=== PATIENT | female | born 1950 | race African-American/Black ===

== ENCOUNTER 2016-11-22 05:38 | Emergency (ER) | payer MEDICARE, MEDICAID ==
[~2016-11-22] VITALS: Ht 170.2 cm; Wt 59.0 kg
[2016-11-22 06:58] LABS: BASOPHILS % 0.6 % (0.0-2.0); EOSINOPHILS % 0.3 % (0.0-5.0); HEMATOCRIT. 39.5 % (36.0-48.0); HEMOGLOBIN. 12.7 g/dL (12.0-16.0); LYMPHOCYTES % 28.4 % (20.0-50.0); MEAN CORPUSCULAR HEMOGLOBIN 31.9 pg (28.0-32.0); MEAN CORPUSCULAR HGB CONC 32.3 g/dL (31.0-37.0); MEAN CORPUSCULAR VOLUME 98.8 fL (81.0-99.0); MEAN PLATELET VOLUME 7.7 fl (7.4-10.4); MONOCYTES % 13.7 % (2.0-8.0); PLATELET 212 x1000/uL (130-400); RED BLOOD CELL COUNT 3.99 mill/uL (4.2-5.4); RED CELL DISTRIBUTION WIDTH 16.8 % (11.6-14.6); WHITE BLOOD COUNT 3.3 x1000/uL (4.5-11.0)
[2016-11-22] MEDS ORDERED: ONDANSETRON HCL 4MG/2ML VIAL IM ONE (07:00)
[2016-11-22] MEDS ORDERED: MORPHINE SULFATE 10 MG/ML CPJ IM ONE (07:00)
[2016-11-22 07:05] LABS: INR 1.2; PROTHROMBIN TIME 12.1 sec
[2016-11-22 07:06] LABS: HCG SCREEN NEGATIVE
[2016-11-22 07:12] LABS: ALANINE AMINOTRANSFERASE 17 IU/L (13-61); ALBUMIN 3.5 g/dL (3.4-5.0); ANION GAP 11; CARBON DIOXIDE 24 mEq/L (21-32); CHLORIDE 109 mEq/L (98-107); INDEX HEMOLYSI 1 (1-3); INDEX ICTERIC 1 (1-4); INDEX LIPEMIC 1 (1-3); LIPASE 210 IU/L (73-393); UREA NITROGEN BLOOD 15 mg/dL (7-21); eGFR > 60 mL/min (>60)
[2016-11-22 07:38] VITALS: BP 154/74
== END 2016-11-22 08:10 | disposition home or self-care (01) ==
LOC: ER 05:38
DX: M32.9 Systemic lupus erythematosus, unspecified (principal); J44.9 Chronic obstructive pulmonary disease, unspecified; Z88.0 Allergy status to penicillin; Z88.6 Allergy status to analgesic agent; Z88.5 Allergy status to narcotic agent; Z88.8 Allergy status to other drugs, medicaments and biological substances; Z87.891 Personal history of nicotine dependence
CPT/HCPCS: 36415; 80053; 83690; 84703; 85025; 85610; 96372; 99284; J2270

== ENCOUNTER 2016-12-01 05:17 | Emergency (ER) | payer MEDICARE, MEDICAID ==
[~2016-12-01] VITALS: Ht 170.2 cm; Wt 59.0 kg
[2016-12-01] MEDS ORDERED: ONDANSETRON HCL 4MG/2ML VIAL IV STA (06:14)
[2016-12-01] MEDS ORDERED: MORPHINE SULFATE 4 MG/ML CPJ (NOT FOR IM USE) IV STA (06:14)
[2016-12-01] MEDS ORDERED: METHYLPREDNISOLONE SOD SUCC 125 MG/2 ML VIAL IV ONE (06:30)
[2016-12-01 06:51] LABS: CLARITY URINE CLEAR (CLEAR); COLOR URINE YELLOW (YELLOW); GLUCOSE URINE NEGATIVE (NEGATIVE); KETONES URINE NEGATIVE (NEGATIVE); LEUKOCYTE ESTERASE URINE TRACE (NEGATIVE); NITRITE URINE NEGATIVE (NEGATIVE); OCCULT BLOOD URINE NEGATIVE (NEGATIVE); PROTEIN URINE NEGATIVE (NEGATIVE)
[2016-12-01 06:53] LABS: INR 1.1; PROTHROMBIN TIME 11.8 sec
[2016-12-01 07:01] LABS: *AMPHETAMINES SCREEN URINE NEGATIVE (NEGATIVE); *BARBITURATES SCREEN URINE NEGATIVE (NEGATIVE); *BENZODIAZEPINES SCREEN URINE NEGATIVE (NEGATIVE); *COCAINE SCREEN URINE NEGATIVE (NEGATIVE); CANNABINOID URINE SCREEN NEGATIVE (NEGATIVE); ECSTASY MDMA SCREEN URINE NEGATIVE (NEGATIVE); METHADONE URINE SCREEN NEGATIVE (NEGATIVE); OPIATES URINE SCREEN PRESUMTIVE POSITIVE (NEGATIVE); PHENCYCLIDINE URINE SCREEN NEGATIVE (NEGATIVE)
[2016-12-01 07:02] LABS: BASOPHILS % 0.5 % (0.0-2.0); EOSINOPHILS % 0.3 % (0.0-5.0); HEMATOCRIT. 41.8 % (36.0-48.0); HEMOGLOBIN. 13.5 g/dL (12.0-16.0); LYMPHOCYTES % 33.1 % (20.0-50.0); MEAN CORPUSCULAR HEMOGLOBIN 31.9 pg (28.0-32.0); MEAN CORPUSCULAR HGB CONC 32.4 g/dL (31.0-37.0); MEAN CORPUSCULAR VOLUME 98.7 fL (81.0-99.0); MEAN PLATELET VOLUME 7.7 fl (7.4-10.4); MONOCYTES % 10.5 % (2.0-8.0); NEUTROPHILS % 55.6 % (40.0-76.0); PLATELET 252 x1000/uL (130-400); RED BLOOD CELL COUNT 4.23 mill/uL (4.2-5.4); RED CELL DISTRIBUTION WIDTH 16.2 % (11.6-14.6); WHITE BLOOD COUNT 3.1 x1000/uL (4.5-11.0)
[2016-12-01 07:04] LABS: ALANINE AMINOTRANSFERASE 27 IU/L (13-61); ALBUMIN 3.6 g/dL (3.4-5.0); ANION GAP 12; CALCIUM 9.1 mg/dL (8.5-10.1); CARBON DIOXIDE 25 mEq/L (21-32); CHLORIDE 108 mEq/L (98-107); ETHANOL BLOOD < 10 mg/dL; INDEX HEMOLYSI 1 (1-3); INDEX ICTERIC 1 (1-4); INDEX LIPEMIC 1 (1-3); UREA NITROGEN BLOOD 10 mg/dL (7-21); eGFR > 60 mL/min (>60)
[2016-12-01] MEDS ORDERED: MORPHINE SULFATE 4 MG/ML CPJ (NOT FOR IM USE) IV ONE (08:00)
[2016-12-01 08:29] LABS: BACTERIA URINE 1+; SQUAMOUS EPITHELIAL CELL URINE 3+ /lpf (RARE/1+)
[2016-12-01 08:31] LABS: RBC URINE 0-2 /hpf (0-2)
[2016-12-01 09:13] VITALS: BP 169/71
== END 2016-12-01 09:13 | disposition home or self-care (01) ==
LOC: ER 05:17
DX: N39.0 Urinary tract infection, site not specified (principal); M32.9 Systemic lupus erythematosus, unspecified; R03.0 Elevated blood-pressure reading, without diagnosis of hypertension; J44.9 Chronic obstructive pulmonary disease, unspecified; Z88.8 Allergy status to other drugs, medicaments and biological substances; Z88.3 Allergy status to other anti-infective agents; Z88.6 Allergy status to analgesic agent; Z87.891 Personal history of nicotine dependence
CPT/HCPCS: 36415; 71010; 80053; 80305; 81001; 84484; 85025; 85610; 85651; 96374; 96375; 96376; 99285; G0482; J2270; J2405; J2930

== ENCOUNTER 2017-02-20 09:46 | Emergency (ER) | payer MEDICARE, MEDICAID ==
[~2017-02-20] VITALS: Ht 170.2 cm; Wt 70.0 kg
[~2017-02-20 09:46] MED LIST: ALBU2.5V13 NEB; FAMO40TA35 PO; FURO-152 PO; POTA10CA42 PO
[2017-02-20] MEDS ORDERED: ONDANSETRON HCL 4MG/2ML VIAL IV STA (10:25)
[2017-02-20] MEDS ORDERED: MORPHINE SULFATE 4 MG/ML CPJ (NOT FOR IM USE) IV STA (10:25)
[2017-02-20] MEDS ORDERED: METHYLPREDNISOLONE SOD SUCC 125 MG/2 ML VIAL IV ONE (10:30)
[2017-02-20 10:54] LABS: BASOPHILS % 0.5 % (0.0-2.0); EOSINOPHILS % 0.1 % (0.0-5.0); HEMATOCRIT. 37.9 % (36.0-48.0); HEMOGLOBIN. 12.4 g/dL (12.0-16.0); LYMPHOCYTES % 13.8 % (20.0-50.0); MEAN CORPUSCULAR HEMOGLOBIN 32.3 pg (28.0-32.0); MEAN CORPUSCULAR VOLUME 98.5 fL (81.0-99.0); MEAN PLATELET VOLUME 7.4 fl (7.4-10.4); MONOCYTES % 2.9 % (2.0-8.0); NEUTROPHILS % 82.7 % (40.0-76.0); PLATELET 227 x1000/uL (130-400); RED BLOOD CELL COUNT 3.84 mill/uL (4.2-5.4); RED CELL DISTRIBUTION WIDTH 15.5 % (11.6-14.6)
[2017-02-20 11:10] LABS: CARBON DIOXIDE 22 mEq/L (21-32); CHLORIDE 109 mEq/L (98-107); CREATINE KINASE 87 IU/L (26-192)
[2017-02-20] MEDS ORDERED: POTASSIUM CHLORIDE 20MEQ TABLET SR PO NR (11:45)
[2017-02-20] MEDS ORDERED: POTASSIUM CHLORIDE INJ 40 MEQ in DEXT 5% WATER 250 ML IV NR (11:45)
[2017-02-20 12:29] VITALS: BP 167/72
== END 2017-02-20 14:43 | disposition left against medical advice (07) ==
LOC: ER 10:44
DX: J44.9 Chronic obstructive pulmonary disease, unspecified (principal); M32.9 Systemic lupus erythematosus, unspecified; Z87.891 Personal history of nicotine dependence; Z88.0 Allergy status to penicillin; Z88.6 Allergy status to analgesic agent; Z88.1 Allergy status to other antibiotic agents; Z90.49 Acquired absence of other specified parts of digestive tract; Z98.890 Other specified postprocedural states
CPT/HCPCS: 36415; 80053; 82550; 85025; 85651; 96365; 96375; 99284; J2270; J2405; J2930; J3480; J7040; J7060

== ENCOUNTER 2017-03-20 06:54 | Emergency (ER) | payer MEDICARE, MEDICAID ==
[~2017-03-20] VITALS: Ht 170.2 cm; Wt 59.0 kg
[2017-03-20] MEDS ORDERED: HYDROCODONE/ACETAMINOPHEN 5/325MG TABLET PO ONE (07:30)
[2017-03-20 08:01] VITALS: BP 175/89
== END 2017-03-20 09:11 | disposition home or self-care (01) ==
LOC: ER 06:55
DX: G89.29 Other chronic pain (principal); M32.9 Systemic lupus erythematosus, unspecified; J44.9 Chronic obstructive pulmonary disease, unspecified; I10 Essential (primary) hypertension; Z91.19 Patient's noncompliance with other medical treatment and regimen; Z87.891 Personal history of nicotine dependence; Z88.0 Allergy status to penicillin; Z88.6 Allergy status to analgesic agent; Z88.1 Allergy status to other antibiotic agents; Z88.8 Allergy status to other drugs, medicaments and biological substances
CPT/HCPCS: 99283

== ENCOUNTER 2018-10-18 13:12 | Inpatient (IN) | payer MEDICARE, MEDICAID ==
[~2018-10-18] VITALS: Ht 170.2 cm; Wt 60.3 kg
[~2018-10-18 13:12] MED LIST changes: -FAMO40TA35 PO; +FAMO40TA70 PO
[2018-10-18] MEDS ORDERED: ONDANSETRON HCL 4MG/2ML INJ IV STA ×2 (14:24→15:44)
[2018-10-18] MEDS ORDERED: MORPHINE SULFATE 4 MG/ML CPJ (NOT FOR IM USE) IV STA ×2 (14:24→15:44)
[2018-10-18] MEDS ORDERED: SODIUM CHLORIDE 0.9% 1000ML BAG (SEPSIS BOLUS) IV ONE (14:30)
[2018-10-18 15:17] LABS: EOSINOPHILS % 1.1 % (0.0-5.0); HEMATOCRIT. 36.5 % (36.0-48.0); HEMOGLOBIN. 11.8 g/dL (12.0-16.0); LYMPHOCYTES % 31.2 % (20.0-50.0); MEAN CORPUSCULAR HEMOGLOBIN 27.9 pg (28.0-32.0); MEAN CORPUSCULAR VOLUME 86.6 fL (81.0-99.0); MEAN PLATELET VOLUME 7.9 fl (7.4-10.4); MONOCYTES % 9.6 % (2.0-8.0); NEUTROPHILS % 57.1 % (40.0-76.0); PLATELET 239 x1000/uL (130-400); RED BLOOD CELL COUNT 4.22 mill/uL (4.2-5.4); RED CELL DISTRIBUTION WIDTH 19.2 % (11.6-14.6)
[2018-10-18 15:20] LABS: CHLORIDE 109 mEq/L (98-107)
[2018-10-18 15:21] LABS: INR 1.1; PROTHROMBIN TIME 11.3 sec (9.1-11.1)
[2018-10-18 15:24] LABS: ETHANOL BLOOD < 10 mg/dL
[2018-10-18] MEDS ORDERED: METHYLPREDNISOLONE SOD SUCC 125 MG/2 ML VIAL IV STA (15:44)
[2018-10-18] MEDS ORDERED: IPRATROPIUM/ALBUTEROL 0.5-3(2.5)MG/3ML NEB HHN ONE (15:45)
[2018-10-18] MEDS ORDERED: LEVOFLOXACIN 750MG PREMIX 150 ML IV ONE (15:45)
[2018-10-18] MEDS ORDERED: MAGNESIUM/ALUMINUM HYDROXIDE/SIMETHICONE 30ML UDC PO PRN (20:30)
[2018-10-18] MEDS ORDERED: ONDANSETRON HCL 4MG/2ML INJ IV PRN (20:30)
[2018-10-18] MEDS ORDERED: DIPHENHYDRAMINE 50MG/ML VIAL IV PRN (20:30)
[2018-10-18] MEDS ORDERED: ACETAMINOPHEN 325MG TABLET PO PRN (20:30)
[2018-10-18] MEDS ORDERED: CLONIDINE 0.1MG TABLET PO PRN (20:30)
[2018-10-18] MEDS ORDERED: IPRATROPIUM/ALBUTEROL 0.5-3(2.5)MG/3ML NEB INH PRN (20:30)
[2018-10-18] MEDS ORDERED: AMLODIPINE 5MG TABLET PO NR (21:15)
[2018-10-18] MEDS ORDERED: FAMOTIDINE 20MG TABLET PO NR (21:15)
[2018-10-18] MEDS ORDERED: METHYLPREDNISOLONE SOD SUCC 125 MG/2 ML VIAL IV NR (21:15)
[2018-10-18] MEDS: HYDROCODONE/ACETAMINOPHEN 10/325MG TABLET PO PRN (21:38)
[2018-10-18 23:10] VITALS: BP 149/85
[2018-10-19] VITALS: BP 149/85
[2018-10-19] MEDS: AMLODIPINE 5MG TABLET PO SCH ×3 (00:21→20:13)
[2018-10-19] MEDS: SODIUM CHLORIDE 0.9% INJ 3ML FLUSH IVF SCH ×4 (00:23→20:13)
[2018-10-19] MEDS: CARISOPRODOL 350 MG TABLET PO PRN ×2 (00:23→09:09)
[2018-10-19] MEDS ORDERED: OXYC40TA57 PO (00:44)
[2018-10-19] MEDS ORDERED: AMLO10TA4 PO (00:44)
[2018-10-19] MEDS ORDERED: ONDA8TAB6 PO (00:44)
[2018-10-19] MEDS ORDERED: S350 MT (00:44)
[2018-10-19] MEDS: IPRATROPIUM/ALBUTEROL 0.5-3(2.5)MG/3ML NEB HHN SCH ×6 (01:03→20:46)
[2018-10-19 04:00] VITALS: BP 122/59
[2018-10-19] MEDS: HYDROCODONE/ACETAMINOPHEN 10/325MG TABLET PO PRN ×3 (04:14→16:15)
[2018-10-19] MEDS: METHYLPREDNISOLONE SOD SUCC 40 MG/ML VIAL IV SCH ×2 (04:14→10:00)
[2018-10-19 08:00] VITALS: BP 142/61
[2018-10-19] MEDS ORDERED: PNEUMOCOCCAL 23-VAL P-SAC VAC 0.5 ML IM ONE (08:00)
[2018-10-19] MEDS ORDERED: FAMOTIDINE 20MG TABLET PO SCH (09:00)
[2018-10-19] MEDS: CELECOXIB 200MG CAPSULE PO SCH ×2 (09:00→09:09)
[2018-10-19] MEDS: FOLIC ACID 1MG TABLET PO SCH (09:10)
[2018-10-19] MEDS: ENOXAPARIN 40MG/0.4ML SYR SUBCUT SCH (09:13)
[2018-10-19] MEDS: HYDROCORTISONE 1% CREAM 30GM TOP SCH ×2 (09:34→20:13)
[2018-10-19 12:00] VITALS: BP 127/65
[2018-10-19 15:42] LABS: CLARITY URINE CLEAR (CLEAR); COLOR URINE YELLOW (YELLOW); KETONES URINE NEGATIVE (NEGATIVE); LEUKOCYTE ESTERASE URINE NEGATIVE (NEGATIVE); NITRITE URINE NEGATIVE (NEGATIVE); OCCULT BLOOD URINE NEGATIVE (NEGATIVE); PROTEIN URINE NEGATIVE (NEGATIVE); SPECIFIC GRAVITY URINE 1.005 (1.005-1.030); UROBILINOGEN URINE 0.2 E.U./dL (0.2-1.0)
[2018-10-19 16:00] VITALS: BP 136/90
[2018-10-19 16:26] LABS: *AMPHETAMINES SCREEN URINE NEGATIVE (NEGATIVE); *BARBITURATES SCREEN URINE NEGATIVE (NEGATIVE); *BENZODIAZEPINES SCREEN URINE NEGATIVE (NEGATIVE); *COCAINE SCREEN URINE NEGATIVE (NEGATIVE)
[2018-10-19 16:27] LABS: CANNABINOID URINE SCREEN NEGATIVE (NEGATIVE); METHADONE URINE SCREEN NEGATIVE (NEGATIVE); OPIATES URINE SCREEN PRESUMTIVE POSITIVE (NEGATIVE); PHENCYCLIDINE URINE SCREEN NEGATIVE (NEGATIVE)
[2018-10-19] MEDS: GUAIFENESIN 200MG/10ML SUGAR FREE UDC PO PRN (18:06)
[2018-10-19] MEDS: LORAZEPAM 0.5MG TABLET PO PRN (18:06)
[2018-10-19] MEDS: METHYLPREDNISOLONE SOD SUCC 125 MG/2 ML VIAL IV SCH (18:06)
[2018-10-19] MEDS: NITROGLYCERIN OINT 1GM/INCH UDPKT TD SCH (19:03)
[2018-10-19 20:00] VITALS: BP 120/70
[2018-10-19] MEDS: ACETAMINOPHEN WITH CODEINE 300/60MG TABLET PO PRN (20:13)
[2018-10-20] VITALS: BP 146/65
[2018-10-20] MEDS: IPRATROPIUM/ALBUTEROL 0.5-3(2.5)MG/3ML NEB HHN SCH ×6 (00:37→21:00)
[2018-10-20] MEDS: CARISOPRODOL 350 MG TABLET PO PRN ×4 (00:49→20:50)
[2018-10-20] MEDS: METHYLPREDNISOLONE SOD SUCC 125 MG/2 ML VIAL IV SCH ×4 (00:49→18:30)
[2018-10-20] MEDS: ACETAMINOPHEN WITH CODEINE 300/60MG TABLET PO PRN ×4 (02:09→20:50)
[2018-10-20] MEDS: LORAZEPAM 0.5MG TABLET PO PRN (02:21)
[2018-10-20 04:00] VITALS: BP 124/62
[2018-10-20] MEDS: SODIUM CHLORIDE 0.9% INJ 3ML FLUSH IVF SCH ×3 (05:26→21:01)
[2018-10-20 08:00] VITALS: BP 125/74
[2018-10-20] MEDS: ENOXAPARIN 40MG/0.4ML SYR SUBCUT SCH (08:17)
[2018-10-20] MEDS: FAMOTIDINE 20MG TABLET PO SCH (08:17)
[2018-10-20] MEDS: FOLIC ACID 1MG TABLET PO SCH (08:18)
[2018-10-20] MEDS: AMLODIPINE 5MG TABLET PO SCH ×2 (08:18→20:50)
[2018-10-20] MEDS: CELECOXIB 200MG CAPSULE PO SCH ×2 (08:18→21:30)
[2018-10-20] MEDS: NITROGLYCERIN OINT 1GM/INCH UDPKT TD SCH ×2 (08:20→18:30)
[2018-10-20 12:00] VITALS: BP 130/76
[2018-10-20] MEDS: HYDROCORTISONE 1% CREAM 30GM TOP SCH ×2 (13:46→21:01)
[2018-10-20 16:00] VITALS: BP 128/75
[2018-10-20 20:00] VITALS: BP 139/84
[2018-10-20] MEDS: HYDROXYCHLOROQUINE SULFATE 200MG TABLET PO SCH (21:30)
[2018-10-20] MEDS: TRIAMCINOLONE ACETONIDE 0.1% CREAM 15GM TOP SCH ×2 (23:00→23:34)
[2018-10-20] MEDS: METHYLPREDNISOLONE SOD SUCC 40 MG/ML VIAL IV SCH (23:23)
[2018-10-21] VITALS: BP 129/70
[2018-10-21] MEDS: IPRATROPIUM/ALBUTEROL 0.5-3(2.5)MG/3ML NEB HHN SCH ×6 (01:23→21:16)
[2018-10-21] MEDS: CARISOPRODOL 350 MG TABLET PO PRN ×4 (02:31→20:55)
[2018-10-21] MEDS: ACETAMINOPHEN WITH CODEINE 300/60MG TABLET PO PRN ×4 (02:31→20:56)
[2018-10-21 04:00] VITALS: BP 137/81
[2018-10-21] MEDS: SODIUM CHLORIDE 0.9% INJ 3ML FLUSH IVF SCH ×3 (05:55→20:57)
[2018-10-21] MEDS: METHYLPREDNISOLONE SOD SUCC 40 MG/ML VIAL IV SCH ×4 (05:55→23:44)
[2018-10-21 08:00] VITALS: BP 118/61
[2018-10-21] MEDS: CELECOXIB 200MG CAPSULE PO SCH ×2 (08:39→17:35)
[2018-10-21] MEDS: FAMOTIDINE 20MG TABLET PO SCH ×2 (08:39→17:36)
[2018-10-21] MEDS: HYDROXYCHLOROQUINE SULFATE 200MG TABLET PO SCH ×2 (08:39→17:35)
[2018-10-21] MEDS: FOLIC ACID 1MG TABLET PO SCH (08:40)
[2018-10-21] MEDS: NITROGLYCERIN OINT 1GM/INCH UDPKT TD SCH ×2 (08:41→17:37)
[2018-10-21] MEDS: TRIAMCINOLONE ACETONIDE 0.1% CREAM 15GM TOP SCH ×2 (08:42→20:57)
[2018-10-21] MEDS: AMLODIPINE 5MG TABLET PO SCH ×2 (08:55→20:56)
[2018-10-21] MEDS: ENOXAPARIN 40MG/0.4ML SYR SUBCUT SCH (08:56)
[2018-10-21] MEDS ORDERED: FOLIC ACID 1MG TABLET PO SCH (09:00)
[2018-10-21] MEDS: HYDROCORTISONE 1% CREAM 30GM TOP SCH ×2 (09:00→20:57)
[2018-10-21] MEDS: METHOTREXATE SODIUM 2 . 5MG TABLET PO SCH ×2 (10:05→14:16)
[2018-10-21] MEDS ORDERED: THROAT LOZENGES-BENZOCAINE/MENTH/CETYLPYRD CL LOZENGES MM PRN (10:30)
[2018-10-21 12:00] VITALS: BP 137/67
[2018-10-21] MEDS: BUDESONIDE 0.5MG/2ML NEB HHN SCH ×2 (13:09→21:16)
[2018-10-21] MEDS: PROMETHAZINE/DEXTROMETHORPHAN 6.25-15MG/5ML BOTTLE 120ML PO PRN (14:11)
[2018-10-21 16:00] VITALS: BP_SYST 123; BP_SYST 170; BP_DIAS 75
[2018-10-21] MEDS: LORAZEPAM 0.5MG TABLET PO PRN (17:36)
[2018-10-21 20:00] VITALS: BP 136/66
[2018-10-22] VITALS: BP_SYST 100; BP_SYST 129; BP_DIAS 63; BP_DIAS 75
[2018-10-22] MEDS: IPRATROPIUM/ALBUTEROL 0.5-3(2.5)MG/3ML NEB HHN SCH ×5 (01:34→20:32)
[2018-10-22] MEDS: CARISOPRODOL 350 MG TABLET PO PRN ×3 (02:49→17:59)
[2018-10-22] MEDS: ACETAMINOPHEN WITH CODEINE 300/60MG TABLET PO PRN ×2 (02:49→09:18)
[2018-10-22] MEDS: METHYLPREDNISOLONE SOD SUCC 40 MG/ML VIAL IV SCH ×3 (06:11→18:15)
[2018-10-22] MEDS: SODIUM CHLORIDE 0.9% INJ 3ML FLUSH IVF SCH ×3 (06:11→20:51)
[2018-10-22 08:00] VITALS: BP 141/82
[2018-10-22] MEDS: METHOTREXATE SODIUM 2 . 5MG TABLET PO SCH (09:00)
[2018-10-22] MEDS: HYDROCORTISONE 1% CREAM 30GM TOP SCH ×2 (09:00→20:50)
[2018-10-22] MEDS: TRIAMCINOLONE ACETONIDE 0.1% CREAM 15GM TOP SCH ×2 (09:00→20:49)
[2018-10-22] MEDS: ENOXAPARIN 40MG/0.4ML SYR SUBCUT SCH (09:14)
[2018-10-22] MEDS: HYDROXYCHLOROQUINE SULFATE 200MG TABLET PO SCH ×2 (09:16→17:59)
[2018-10-22] MEDS: CELECOXIB 200MG CAPSULE PO SCH ×2 (09:17→17:59)
[2018-10-22] MEDS: AMLODIPINE 5MG TABLET PO SCH ×2 (09:17→20:48)
[2018-10-22] MEDS: FAMOTIDINE 20MG TABLET PO SCH ×2 (09:18→17:59)
[2018-10-22] MEDS: FOLIC ACID 1MG TABLET PO SCH (09:19)
[2018-10-22] MEDS: NITROGLYCERIN OINT 1GM/INCH UDPKT TD SCH ×2 (09:19→18:00)
[2018-10-22] MEDS: BUDESONIDE 0.5MG/2ML NEB HHN SCH ×2 (09:41→20:32)
[2018-10-22 12:00] VITALS: BP 135/71
[2018-10-22] MEDS: MORPHINE SULFATE 4 MG/ML CPJ (NOT FOR IM USE) IV PRN ×3 (12:55→21:22)
[2018-10-22 16:00] VITALS: BP 130/75
[2018-10-22] MEDS ORDERED: TERBUTALINE SULFATE 1MG/ML VIAL SUBCUT NR (16:45)
[2018-10-22 17:06] LABS: ANTI-DNA DOUBLE STRANDED QUANT < 1 IU/mL (0-9)
[2018-10-22 20:00] VITALS: BP 159/70
[2018-10-22] MEDS: SERTRALINE HCL 50MG TABLET PO SCH (20:48)
[2018-10-22] MEDS: GUAIFENESIN 200MG/10ML SUGAR FREE UDC PO PRN (21:35)
[2018-10-22] MEDS: PROMETHAZINE/DEXTROMETHORPHAN 6.25-15MG/5ML BOTTLE 120ML PO PRN (22:15)
[2018-10-23] VITALS: BP 126/62
[2018-10-23] MEDS: METHYLPREDNISOLONE SOD SUCC 40 MG/ML VIAL IV SCH ×5 (00:18→23:32)
[2018-10-23] MEDS: IPRATROPIUM/ALBUTEROL 0.5-3(2.5)MG/3ML NEB HHN SCH ×6 (01:13→20:56)
[2018-10-23] MEDS: MORPHINE SULFATE 4 MG/ML CPJ (NOT FOR IM USE) IV PRN ×5 (01:25→21:17)
[2018-10-23 04:00] VITALS: BP 156/74
[2018-10-23] MEDS: SODIUM CHLORIDE 0.9% INJ 3ML FLUSH IVF SCH ×3 (05:26→22:00)
[2018-10-23] MEDS: CARISOPRODOL 350 MG TABLET PO PRN ×2 (06:24→13:05)
[2018-10-23 08:00] VITALS: BP 153/72
[2018-10-23] MEDS: FOLIC ACID 1MG TABLET PO SCH (09:00)
[2018-10-23] MEDS: SERTRALINE HCL 50MG TABLET PO SCH (09:00)
[2018-10-23] MEDS: FAMOTIDINE 20MG TABLET PO SCH ×2 (09:00→17:24)
[2018-10-23] MEDS: HYDROXYCHLOROQUINE SULFATE 200MG TABLET PO SCH ×2 (09:00→17:24)
[2018-10-23] MEDS: CELECOXIB 200MG CAPSULE PO SCH ×2 (09:00→17:25)
[2018-10-23] MEDS: AMLODIPINE 5MG TABLET PO SCH ×2 (09:00→21:18)
[2018-10-23] MEDS: METHOTREXATE SODIUM 2 . 5MG TABLET PO SCH (09:00)
[2018-10-23] MEDS: TRIAMCINOLONE ACETONIDE 0.1% CREAM 15GM TOP SCH ×2 (09:01→21:18)
[2018-10-23] MEDS: HYDROCORTISONE 1% CREAM 30GM TOP SCH ×2 (09:01→21:18)
[2018-10-23] MEDS: PROMETHAZINE/DEXTROMETHORPHAN 6.25-15MG/5ML BOTTLE 120ML PO PRN (09:03)
[2018-10-23 09:06] LABS: COMPLEMENT C3 111 mg/dL (82-167)
[2018-10-23] MEDS: ENOXAPARIN 40MG/0.4ML SYR SUBCUT SCH (09:22)
[2018-10-23] MEDS: NITROGLYCERIN OINT 1GM/INCH UDPKT TD SCH ×2 (09:22→17:24)
[2018-10-23] MEDS: BUDESONIDE 0.5MG/2ML NEB HHN SCH ×2 (09:40→20:56)
[2018-10-23 12:00] VITALS: BP 125/73
[2018-10-23 15:06] LABS: RNP ANTIBODY < 0.2 AI (0.0-0.9); SMITH ANTIBODY < 0.2 AI (0.0-0.9)
[2018-10-23 16:00] VITALS: BP 143/71
[2018-10-23 20:00] VITALS: BP 128/78
[2018-10-24] VITALS: BP 120/60
[2018-10-24] MEDS: IPRATROPIUM/ALBUTEROL 0.5-3(2.5)MG/3ML NEB HHN SCH ×4 (00:23→12:17)
[2018-10-24] MEDS: MORPHINE SULFATE 4 MG/ML CPJ (NOT FOR IM USE) IV PRN ×2 (03:23→09:14)
[2018-10-24 04:00] VITALS: BP 137/70
[2018-10-24] MEDS: CARISOPRODOL 350 MG TABLET PO PRN (04:17)
[2018-10-24] MEDS: SODIUM CHLORIDE 0.9% INJ 3ML FLUSH IVF SCH (04:54)
[2018-10-24] MEDS: METHYLPREDNISOLONE SOD SUCC 40 MG/ML VIAL IV SCH ×2 (06:00→12:00)
[2018-10-24 08:00] VITALS: BP 148/64
[2018-10-24] MEDS: HYDROCORTISONE 1% CREAM 30GM TOP SCH (09:11)
[2018-10-24] MEDS: TRIAMCINOLONE ACETONIDE 0.1% CREAM 15GM TOP SCH (09:11)
[2018-10-24] MEDS: FAMOTIDINE 20MG TABLET PO SCH (09:13)
[2018-10-24] MEDS: FOLIC ACID 1MG TABLET PO SCH (09:13)
[2018-10-24] MEDS: AMLODIPINE 5MG TABLET PO SCH (09:13)
[2018-10-24] MEDS: CELECOXIB 200MG CAPSULE PO SCH (09:13)
[2018-10-24] MEDS: HYDROXYCHLOROQUINE SULFATE 200MG TABLET PO SCH (09:13)
[2018-10-24] MEDS: SERTRALINE HCL 50MG TABLET PO SCH (09:13)
[2018-10-24] MEDS: ENOXAPARIN 40MG/0.4ML SYR SUBCUT SCH (09:15)
[2018-10-24] MEDS: BUDESONIDE 0.5MG/2ML NEB HHN SCH (09:28)
[2018-10-24] MEDS: NITROGLYCERIN OINT 1GM/INCH UDPKT TD SCH (09:31)
[2018-10-24 11:22] VITALS: BP 148/64
[2018-10-24 17:06] LABS: ANTI-MYELOPEROXIDASE AB < 9.0 U/mL (0.0-9.0); ANTI-PROTEINASE 3 ABS < 3.5 U/mL (0.0-3.5)
[2018-10-25 13:06] LABS: ANA IFA Negative (.); ATYPICAL P-ANCA <1:20 titer (Neg:<1:20); CYTOPLASMIC C-ANCA <1:20 titer (Neg:<1:20); PERINUCLEAR P-ANCA <1:20 titer (Neg:<1:20)
[2018-10-28] MEDS ORDERED: METHOTREXATE SODIUM 2 . 5MG TABLET PO SCH ×3 (09:00→17:00)
== END 2018-10-24 14:40 | disposition home or self-care (01) | DRG 133 ==
LOC: ER 13:12 → 7WST 16:16 → EDBEDREQ 16:18 → EDBEDREQSVC 16:18 → ENRESERV 21:58 → 7WST 10-20 08:43
PROVIDERS: ADMIT Internal Medicine; ATTEND Internal Medicine
DX: J96.00 Acute respiratory failure, unspecified whether with hypoxia or hypercapnia (principal); J18.9 Pneumonia, unspecified organism; I11.0 Hypertensive heart disease with heart failure; J44.0 Chronic obstructive pulmonary disease with (acute) lower respiratory infection; M32.9 Systemic lupus erythematosus, unspecified; I50.9 Heart failure, unspecified; B19.20 Unspecified viral hepatitis C without hepatic coma; J44.1 Chronic obstructive pulmonary disease with (acute) exacerbation; F32.9 Major depressive disorder, single episode, unspecified; F41.1 Generalized anxiety disorder; G89.4 Chronic pain syndrome; I73.00 Raynaud's syndrome without gangrene; K12.1 Other forms of stomatitis; K21.9 Gastro-esophageal reflux disease without esophagitis; M19.90 Unspecified osteoarthritis, unspecified site; Z79.899 Other long term (current) drug therapy; Z82.49 Family history of ischemic heart disease and other diseases of the circulatory system; Z83.3 Family history of diabetes mellitus; Z86.73 Personal history of transient ischemic attack (TIA), and cerebral infarction without residual deficits; Z87.11 Personal history of peptic ulcer disease; Z87.891 Personal history of nicotine dependence; Z90.710 Acquired absence of both cervix and uterus; Z90.49 Acquired absence of other specified parts of digestive tract; Z88.0 Allergy status to penicillin; Z88.8 Allergy status to other drugs, medicaments and biological substances; Z88.6 Allergy status to analgesic agent; Z88.7 Allergy status to serum and vaccine
CPT/HCPCS: 36415; 71045; 80305; 80320; 83520; 83605; 84145; 84484; 85651; 86160; 86225; 86235; 86256; 93005; 93306; 93970; 94640; 96365; 96366; 96375; 97116; 97163; 97530; 99285; C1893; J1200; J1650; J1956; J2270; J2405; J2920; J2930; J3105; J7030; J7050; J7620; J7626; J8610; G0480

== ENCOUNTER 2018-11-09 07:39 | Inpatient (IN) | payer MEDICARE, MEDICAID ==
[~2018-11-09] VITALS: Ht 167.6 cm; Wt 54.4 kg
[~2018-11-09 07:39] MED LIST changes: +AMLO10TA4 PO; -FURO-152 PO; +ONDA8TAB6 PO; +OXYC40TA57 PO; +S350 MT
[2018-11-09] MEDS ORDERED: MORPHINE SULFATE 4 MG/ML CPJ (NOT FOR IM USE) IV STA ×2 (08:04→10:36)
[2018-11-09] MEDS ORDERED: ONDANSETRON HCL 4MG/2ML INJ IV STA (08:04)
[2018-11-09 08:42] LABS: CHLORIDE 109 mEq/L (98-107)
[2018-11-09 08:49] LABS: BASOPHILS % 1.1 % (0.0-2.0); EOSINOPHILS % 1.1 % (0.0-5.0); HEMATOCRIT. 38.1 % (36.0-48.0); HEMOGLOBIN. 12.2 g/dL (12.0-16.0); LYMPHOCYTES % 27.3 % (20.0-50.0); MEAN CORPUSCULAR HEMOGLOBIN 27.8 pg (28.0-32.0); MEAN CORPUSCULAR VOLUME 86.7 fL (81.0-99.0); MEAN PLATELET VOLUME 7.3 fl (7.4-10.4); MONOCYTES % 11.9 % (2.0-8.0); NEUTROPHILS % 58.6 % (40.0-76.0); PLATELET 341 x1000/uL (130-400); RED BLOOD CELL COUNT 4.39 mill/uL (4.2-5.4); RED CELL DISTRIBUTION WIDTH 19.3 % (11.6-14.6)
[2018-11-09] MEDS ORDERED: IOHEXOL-300 100 ML BOTTLE ONE (10:40)
[2018-11-09 11:15] LABS: CLARITY URINE CLEAR (CLEAR); COLOR URINE YELLOW (YELLOW); KETONES URINE TRACE (NEGATIVE); LEUKOCYTE ESTERASE URINE NEGATIVE (NEGATIVE); NITRITE URINE NEGATIVE (NEGATIVE); OCCULT BLOOD URINE NEGATIVE (NEGATIVE); PROTEIN URINE NEGATIVE (NEGATIVE); SPECIFIC GRAVITY URINE 1.075 (1.005-1.030)
[2018-11-09] MEDS ORDERED: ACETAMINOPHEN 325MG TABLET PO PRN (14:30)
[2018-11-09] MEDS ORDERED: ONDANSETRON HCL 4MG/2ML INJ IV PRN (14:30)
[2018-11-09] MEDS: HYDROMORPHONE HCL/PF 2MG/ML CPJ IV PRN ×4 (15:39→23:15)
[2018-11-09] MEDS: ENOXAPARIN 40MG/0.4ML SYR SUBCUT SCH (15:41)
[2018-11-09 19:30] VITALS: BP 119/75
[2018-11-09 20:00] VITALS: BP 129/77
[2018-11-09] MEDS: DEXT 5%/0.45% NACL 1000ML 1,000 ML IV SCH (20:46)
[2018-11-10] VITALS: BP 105/82
[2018-11-10] MEDS: HYDROMORPHONE HCL/PF 2MG/ML CPJ IV PRN ×11 (02:06→23:02)
[2018-11-10 04:00] VITALS: BP 145/70
[2018-11-10] MEDS: IPRATROPIUM/ALBUTEROL 0.5-3(2.5)MG/3ML NEB HHN PRN ×2 (04:50→20:05)
[2018-11-10 07:19] LABS: BASOPHILS % 0.2 % (0.0-2.0); HEMATOCRIT. 34.4 % (36.0-48.0); HEMOGLOBIN. 10.8 g/dL (12.0-16.0); LYMPHOCYTES % 26.1 % (20.0-50.0); MEAN CORPUSCULAR HEMOGLOBIN 27.5 pg (28.0-32.0); MEAN CORPUSCULAR VOLUME 87.8 fL (81.0-99.0); MEAN PLATELET VOLUME 7.5 fl (7.4-10.4); MONOCYTES % 13.7 % (2.0-8.0); PLATELET 342 x1000/uL (130-400); RED BLOOD CELL COUNT 3.92 mill/uL (4.2-5.4); RED CELL DISTRIBUTION WIDTH 19.4 % (11.6-14.6)
[2018-11-10 07:31] LABS: CHLORIDE 106 mEq/L (98-107)
[2018-11-10 08:00] VITALS: BP 151/91
[2018-11-10] MEDS ORDERED: POTASSIUM CHLORIDE 20MEQ TABLET SR PO NR (10:00)
[2018-11-10] MEDS: DEXT 5%/0.45% NACL 1000ML 1,000 ML IV SCH (12:27)
[2018-11-10] MEDS: ENOXAPARIN 40MG/0.4ML SYR SUBCUT SCH (14:37)
[2018-11-10 20:00] VITALS: BP 144/89
[2018-11-11] VITALS: BP 131/69
[2018-11-11] MEDS: HYDROMORPHONE HCL/PF 2MG/ML CPJ IV PRN ×4 (01:00→08:09)
[2018-11-11] MEDS: DEXT 5%/0.45% NACL 1000ML 1,000 ML IV SCH (01:44)
[2018-11-11 04:00] VITALS: BP 134/77
[2018-11-11 06:19] LABS: BASOPHILS % 0.5 % (0.0-2.0); EOSINOPHILS % 2.2 % (0.0-5.0); HEMATOCRIT. 33.9 % (36.0-48.0); HEMOGLOBIN. 10.9 g/dL (12.0-16.0); LYMPHOCYTES % 41.8 % (20.0-50.0); MEAN CORPUSCULAR HEMOGLOBIN 28.2 pg (28.0-32.0); MEAN CORPUSCULAR VOLUME 87.5 fL (81.0-99.0); MEAN PLATELET VOLUME 7.4 fl (7.4-10.4); MONOCYTES % 13.8 % (2.0-8.0); NEUTROPHILS % 41.7 % (40.0-76.0); PLATELET 352 x1000/uL (130-400); RED BLOOD CELL COUNT 3.88 mill/uL (4.2-5.4); RED CELL DISTRIBUTION WIDTH 19.1 % (11.6-14.6)
[2018-11-11 07:11] LABS: CHLORIDE 110 mEq/L (98-107)
[2018-11-11 08:00] VITALS: BP 156/95
[2018-11-11 11:00] VITALS: BP 145/74
[2018-11-11 11:15] VITALS: BP 132/76
== END 2018-11-11 11:25 | disposition home health service (06) | DRG 249 ==
LOC: ER 07:52 → 8WST 10:24 → EDBEDREQSVC 10:25 → ENRESERV 12:30
PROVIDERS: ADMIT Hospitalist; ATTEND Hospitalist
DX: E86.0 Dehydration (principal); K52.9 Noninfective gastroenteritis and colitis, unspecified; I11.0 Hypertensive heart disease with heart failure; I50.9 Heart failure, unspecified; G89.4 Chronic pain syndrome; J43.9 Emphysema, unspecified; K56.41 Fecal impaction; K86.89 Other specified diseases of pancreas; Z87.891 Personal history of nicotine dependence; Z90.49 Acquired absence of other specified parts of digestive tract; Z90.710 Acquired absence of both cervix and uterus; Z88.0 Allergy status to penicillin; Z88.1 Allergy status to other antibiotic agents; Z88.9 Allergy status to unspecified drugs, medicaments and biological substances
CPT/HCPCS: 36415; 71045; 74177; 74181; 84484; 87015; 87045; 87427; 87449; 87493; 89055; 93005; 93970; 96374; 96375; 96376; 99285; C1893; J1170; J1650; J2270; J2405; J7620; Q9967

== ENCOUNTER 2018-11-22 07:21 | Emergency (ER) | payer MEDICARE, MEDICAID ==
[~2018-11-22] VITALS: Ht 170.2 cm; Wt 54.0 kg
[2018-11-22] MEDS ORDERED: HYDROCODONE/ACETAMINOPHEN 5/325MG TABLET PO ONE (09:45)
[2018-11-22] MEDS ORDERED: MORPHINE SULFATE 10 MG/ML CPJ IM ONE (10:15)
[2018-11-22 10:49] VITALS: BP 149/82
== END 2018-11-22 11:34 | disposition home or self-care (01) ==
LOC: ER 07:21
DX: G89.29 Other chronic pain (principal); M54.2 Cervicalgia; I25.2 Old myocardial infarction; I50.9 Heart failure, unspecified; J44.9 Chronic obstructive pulmonary disease, unspecified; Z88.0 Allergy status to penicillin; Z88.6 Allergy status to analgesic agent; Z79.899 Other long term (current) drug therapy
CPT/HCPCS: 96372; 99283; J2270

== ENCOUNTER 2018-12-13 08:42 | Inpatient (IN) | payer MEDICARE, OTHER ==
[~2018-12-13] VITALS: Ht 170.2 cm; Wt 54.4 kg
[2018-12-13] MEDS ORDERED: IPRATROPIUM BROMIDE (0.02%) 0.5MG/2.5ML NEB HHN STA (09:11)
[2018-12-13] MEDS ORDERED: MORPHINE SULFATE 4 MG/ML CPJ (NOT FOR IM USE) IV STA (09:11)
[2018-12-13] MEDS ORDERED: PREDNISONE 20MG TABLET PO STA (09:11)
[2018-12-13] MEDS ORDERED: ALBUTEROL (0.083%) 2.5MG/3ML NEB HHN STA (09:11)
[2018-12-13 09:36] LABS: CHLORIDE 109 mEq/L (98-107)
[2018-12-13 09:37] LABS: HEMATOCRIT. 38.3 % (36.0-48.0); HEMOGLOBIN. 12.2 g/dL (12.0-16.0); MEAN CORPUSCULAR HEMOGLOBIN 27.6 pg (28.0-32.0); MEAN CORPUSCULAR VOLUME 86.7 fL (81.0-99.0); MEAN PLATELET VOLUME 7.3 fl (7.4-10.4); PLATELET 391 x1000/uL (130-400); RED BLOOD CELL COUNT 4.41 mill/uL (4.2-5.4); RED CELL DISTRIBUTION WIDTH 20.2 % (11.6-14.6)
[2018-12-13 10:50] LABS: PLATELET ESTIMATE NORMAL
[2018-12-13] MEDS ORDERED: MORPHINE SULFATE 4 MG/ML CPJ (NOT FOR IM USE) IV ONE (11:00)
[2018-12-13 14:00] VITALS: BP 143/77
[2018-12-13] MEDS ORDERED: GUAIFENESIN 200MG/10ML SUGAR FREE UDC PO PRN (14:30)
[2018-12-13] MEDS ORDERED: DOCUSATE SODIUM 100MG CAPSULE PO PRN (14:30)
[2018-12-13] MEDS ORDERED: IPRATROPIUM/ALBUTEROL 0.5-3(2.5)MG/3ML NEB INH PRN (14:30)
[2018-12-13] MEDS ORDERED: DIPHENHYDRAMINE 50MG/ML VIAL IV PRN (14:30)
[2018-12-13] MEDS ORDERED: ONDANSETRON HCL 4MG/2ML INJ IV PRN (14:30)
[2018-12-13] MEDS ORDERED: CLONIDINE 0.1MG TABLET PO PRN (14:30)
[2018-12-13] MEDS ORDERED: ACETAMINOPHEN 325MG TABLET PO PRN (14:30)
[2018-12-13] MEDS ORDERED: MAGNESIUM/ALUMINUM HYDROXIDE/SIMETHICONE 30ML UDC PO PRN (14:30)
[2018-12-13] MEDS: MORPHINE SULFATE 2 MG/ML CPJ (NOT FOR IM USE) IV PRN ×3 (15:07→23:45)
[2018-12-13] MEDS: ENOXAPARIN 40MG/0.4ML SYR SUBCUT SCH (15:08)
[2018-12-13 15:30] VITALS: BP 116/63
[2018-12-13 16:00] VITALS: BP 117/80
[2018-12-13] MEDS ORDERED: HYDROCODONE/ACETAMINOPHEN 5/325MG TABLET PO PRN (17:00)
[2018-12-13 17:18] LABS: PHOSPHORUS 3.3 mg/dL (2.5-4.9)
[2018-12-13 20:00] VITALS: BP 120/59
[2018-12-13] MEDS: AMLODIPINE 5MG TABLET PO SCH (21:16)
[2018-12-13] MEDS: PREDNISONE 10MG TABLET PO SCH (21:16)
[2018-12-14] VITALS: BP 118/70
[2018-12-14] MEDS: MORPHINE SULFATE 2 MG/ML CPJ (NOT FOR IM USE) IV PRN ×2 (03:49→08:05)
[2018-12-14 04:00] VITALS: BP 128/74
[2018-12-14 06:59] LABS: EOSINOPHILS % 0.1 % (0.0-5.0); HEMATOCRIT. 34.4 % (36.0-48.0); HEMOGLOBIN. 10.9 g/dL (12.0-16.0); LYMPHOCYTES % 23.5 % (20.0-50.0); MEAN CORPUSCULAR HEMOGLOBIN 27.3 pg (28.0-32.0); MEAN CORPUSCULAR VOLUME 85.7 fL (81.0-99.0); MEAN PLATELET VOLUME 7.3 fl (7.4-10.4); MONOCYTES % 9.9 % (2.0-8.0); NEUTROPHILS % 64.5 % (40.0-76.0); PLATELET 344 x1000/uL (130-400); RED BLOOD CELL COUNT 4.01 mill/uL (4.2-5.4); RED CELL DISTRIBUTION WIDTH 19.8 % (11.6-14.6)
[2018-12-14 07:32] LABS: CHLORIDE 109 mEq/L (98-107)
[2018-12-14 07:48] LABS: CREATINE KINASE 64 IU/L (26-192); LDL CHOLESTEROL 62 mg/dL (5-100)
[2018-12-14 07:52] LABS: HDL CHOLESTEROL 47 mg/dL (40-59)
[2018-12-14 08:00] VITALS: BP 140/76
[2018-12-14] MEDS: AMLODIPINE 5MG TABLET PO SCH ×2 (08:08→23:30)
[2018-12-14] MEDS: PREDNISONE 10MG TABLET PO SCH (08:08)
[2018-12-14 12:00] VITALS: BP 104/65
[2018-12-14] MEDS: HYDROMORPHONE HCL/PF 2MG/ML CPJ IV PRN ×3 (12:21→20:39)
[2018-12-14 16:00] VITALS: BP 108/72
[2018-12-14] MEDS: ENOXAPARIN 40MG/0.4ML SYR SUBCUT SCH (16:22)
[2018-12-15] VITALS: BP 125/65
[2018-12-15] MEDS: HYDROMORPHONE HCL/PF 2MG/ML CPJ IV PRN ×6 (00:42→21:29)
[2018-12-15 04:00] VITALS: BP 137/78
[2018-12-15 06:59] LABS: BASOPHILS % 1.3 % (0.0-2.0); EOSINOPHILS % 1.1 % (0.0-5.0); HEMATOCRIT. 37.2 % (36.0-48.0); HEMOGLOBIN. 11.7 g/dL (12.0-16.0); MEAN CORPUSCULAR HEMOGLOBIN 27.4 pg (28.0-32.0); MEAN CORPUSCULAR VOLUME 86.8 fL (81.0-99.0); MEAN PLATELET VOLUME 7.5 fl (7.4-10.4); NEUTROPHILS % 52.6 % (40.0-76.0); PLATELET 335 x1000/uL (130-400); RED BLOOD CELL COUNT 4.28 mill/uL (4.2-5.4); RED CELL DISTRIBUTION WIDTH 19.9 % (11.6-14.6)
[2018-12-15 07:04] LABS: CHLORIDE 106 mEq/L (98-107)
[2018-12-15 08:00] VITALS: BP 146/71
[2018-12-15] MEDS: AMLODIPINE 5MG TABLET PO SCH ×2 (08:26→20:38)
[2018-12-15] MEDS: PREDNISONE 10MG TABLET PO SCH (08:26)
[2018-12-15] MEDS ORDERED: HYDROCODONE/ACETAMINOPHEN 5/325MG TABLET PO PRN (10:00)
[2018-12-15 12:00] VITALS: BP 132/72
[2018-12-15] MEDS: ENOXAPARIN 40MG/0.4ML SYR SUBCUT SCH (14:28)
[2018-12-15 16:00] VITALS: BP 128/64
[2018-12-16] MEDS: HYDROMORPHONE HCL/PF 2MG/ML CPJ IV PRN ×6 (01:33→23:36)
[2018-12-16 06:20] LABS: EOSINOPHILS % 1.7 % (0.0-5.0); HEMATOCRIT. 34.6 % (36.0-48.0); HEMOGLOBIN. 10.8 g/dL (12.0-16.0); LYMPHOCYTES % 39.1 % (20.0-50.0); MEAN CORPUSCULAR HEMOGLOBIN 27.3 pg (28.0-32.0); MEAN CORPUSCULAR VOLUME 87.1 fL (81.0-99.0); MONOCYTES % 6.4 % (2.0-8.0); NEUTROPHILS % 51.8 % (40.0-76.0); RED BLOOD CELL COUNT 3.97 mill/uL (4.2-5.4); RED CELL DISTRIBUTION WIDTH 19.8 % (11.6-14.6)
[2018-12-16 06:24] LABS: CHLORIDE 107 mEq/L (98-107)
[2018-12-16 08:00] VITALS: BP 128/90
[2018-12-16] MEDS: AMLODIPINE 5MG TABLET PO SCH ×2 (08:14→21:18)
[2018-12-16] MEDS: PREDNISONE 10MG TABLET PO SCH (08:15)
[2018-12-16 12:00] VITALS: BP 126/73
[2018-12-16] MEDS: ENOXAPARIN 40MG/0.4ML SYR SUBCUT SCH (15:13)
[2018-12-16 16:00] VITALS: BP 127/68
[2018-12-16 20:00] VITALS: BP 128/62
[2018-12-17] VITALS (7 sets, daily range): BP systolic 114–140; BP diastolic 63–79
[2018-12-17] MEDS: HYDROMORPHONE HCL/PF 2MG/ML CPJ IV PRN ×5 (03:46→20:51)
[2018-12-17 07:38] LABS: BASOPHILS % 1.4 % (0.0-2.0); EOSINOPHILS % 1.4 % (0.0-5.0); HEMATOCRIT. 37.9 % (36.0-48.0); HEMOGLOBIN. 12.1 g/dL (12.0-16.0); LYMPHOCYTES % 30.7 % (20.0-50.0); MEAN CORPUSCULAR HEMOGLOBIN 27.6 pg (28.0-32.0); MEAN CORPUSCULAR VOLUME 86.5 fL (81.0-99.0); MEAN PLATELET VOLUME 7.9 fl (7.4-10.4); MONOCYTES % 12.7 % (2.0-8.0); NEUTROPHILS % 53.8 % (40.0-76.0); PLATELET 318 x1000/uL (130-400); RED BLOOD CELL COUNT 4.37 mill/uL (4.2-5.4); RED CELL DISTRIBUTION WIDTH 19.9 % (11.6-14.6)
[2018-12-17] MEDS: AMLODIPINE 5MG TABLET PO SCH ×2 (08:03→20:51)
[2018-12-17] MEDS: PREDNISONE 10MG TABLET PO SCH (08:03)
[2018-12-17 08:26] LABS: CHLORIDE 107 mEq/L (98-107)
[2018-12-17] MEDS: ENOXAPARIN 40MG/0.4ML SYR SUBCUT SCH (14:39)
[2018-12-17 15:23] LABS: T4 FREE 1.42 ng/dL (0.76-1.46)
[2018-12-18] VITALS: BP 145/87
[2018-12-18] MEDS: HYDROMORPHONE HCL/PF 2MG/ML CPJ IV PRN ×3 (00:20→08:00)
[2018-12-18 04:00] VITALS: BP 137/84
[2018-12-18 08:00] VITALS: BP_SYST 146; BP_SYST 149; BP_DIAS 65; BP_DIAS 93
[2018-12-18] MEDS: AMLODIPINE 5MG TABLET PO SCH (09:15)
[2018-12-18] MEDS: PREDNISONE 10MG TABLET PO SCH (09:15)
[2018-12-18 09:39] VITALS: BP 149/65
[2018-12-18] MEDS ORDERED: HYDR200T80 MT (09:57)
== END 2018-12-18 11:35 | disposition home or self-care (01) | DRG 351 ==
LOC: ER 08:42 → 6EST 11:27 → EDBEDREQSVC 11:33 → EDBEDREQ 11:33 → ENRESERV 13:14
PROVIDERS: ADMIT Internal Medicine; ATTEND Internal Medicine
PROC: 0R9J3ZZ Drainage of Right Shoulder Joint, Percutaneous Approach (ICD-10-PCS; principal; 2018-12-17)
DX: M75.120 Complete rotator cuff tear or rupture of unspecified shoulder, not specified as traumatic (principal); M32.9 Systemic lupus erythematosus, unspecified; I11.9 Hypertensive heart disease without heart failure; M48.02 Spinal stenosis, cervical region; J43.9 Emphysema, unspecified; K12.1 Other forms of stomatitis; M54.12 Radiculopathy, cervical region; F32.9 Major depressive disorder, single episode, unspecified; I73.00 Raynaud's syndrome without gangrene; M51.36 Other intervertebral disc degeneration, lumbar region; M50.30 Other cervical disc degeneration, unspecified cervical region; K21.9 Gastro-esophageal reflux disease without esophagitis; M19.011 Primary osteoarthritis, right shoulder; M47.892 Other spondylosis, cervical region; M75.01 Adhesive capsulitis of right shoulder; Z83.3 Family history of diabetes mellitus; Z90.710 Acquired absence of both cervix and uterus; Z87.891 Personal history of nicotine dependence; Z88.0 Allergy status to penicillin; Z88.6 Allergy status to analgesic agent; Z88.8 Allergy status to other drugs, medicaments and biological substances; Z79.899 Other long term (current) drug therapy; Z90.49 Acquired absence of other specified parts of digestive tract; Z82.49 Family history of ischemic heart disease and other diseases of the circulatory system; Z80.8 Family history of malignant neoplasm of other organs or systems; Z86.19 Personal history of other infectious and parasitic diseases; Z87.11 Personal history of peptic ulcer disease; Z91.19 Patient's noncompliance with other medical treatment and regimen
CPT/HCPCS: 36415; 71045; 72141; 73221; 80048; 80061; 82550; 82553; 83735; 84100; 84439; 84443; 84481; 85651; 86038; 86140; 93005; 93970; 96374; 96375; 97116; 97162; 97166; 97530; 99285; C1893; J1170; J1200; J1650; J2270; J2405; J7512

== ENCOUNTER 2018-12-20 07:41 | Emergency (ER) | payer MEDICARE, OTHER ==
[~2018-12-20] VITALS: Ht 170.2 cm; Wt 50.0 kg
[~2018-12-20 07:41] MED LIST changes: +HYDR200T80 MT
[2018-12-20 08:30] VITALS: BP 145/88
[2018-12-20] MEDS ORDERED: MORPHINE SULFATE 10 MG/ML CPJ IM ONE (08:30)
== END 2018-12-20 09:15 | disposition home or self-care (01) ==
LOC: ER 09:10
DX: M25.511 Pain in right shoulder (principal); Z88.0 Allergy status to penicillin; Z88.1 Allergy status to other antibiotic agents; Z88.8 Allergy status to other drugs, medicaments and biological substances; Z88.3 Allergy status to other anti-infective agents
CPT/HCPCS: 93005; 96372; 99283; J2270

== ENCOUNTER 2019-01-11 10:43 | Emergency (ER) | payer MEDICARE, OTHER ==
[~2019-01-11] VITALS: Ht 170.2 cm; Wt 58.0 kg
[2019-01-11] MEDS ORDERED: FENTANYL CITRATE/PF 50MCG/ML 2ML VIAL IV ONE (13:30)
[2019-01-11 14:10] VITALS: BP 135/78
== END 2019-01-11 14:11 | disposition home or self-care (01) ==
LOC: ER 10:43
DX: S46.001A Unspecified injury of muscle(s) and tendon(s) of the rotator cuff of right shoulder, initial encounter (principal); M25.511 Pain in right shoulder; L80 Vitiligo; J44.9 Chronic obstructive pulmonary disease, unspecified; I11.0 Hypertensive heart disease with heart failure; I50.9 Heart failure, unspecified; I25.2 Old myocardial infarction; M32.9 Systemic lupus erythematosus, unspecified; Z88.0 Allergy status to penicillin; Z79.82 Long term (current) use of aspirin; Z88.1 Allergy status to other antibiotic agents; Z88.6 Allergy status to analgesic agent; Z88.3 Allergy status to other anti-infective agents; Z79.899 Other long term (current) drug therapy; Z87.891 Personal history of nicotine dependence; Z98.890 Other specified postprocedural states; X58.XXXA Exposure to other specified factors, initial encounter; Y93.89 Activity, other specified; Y92.89 Other specified places as the place of occurrence of the external cause; Y99.8 Other external cause status
CPT/HCPCS: 71045; 73030; 96374; 99283; C1893; J3010

== ENCOUNTER 2019-01-16 09:01 | Emergency (ER) | payer MEDICARE, OTHER ==
[~2019-01-16] VITALS: Ht 170.2 cm; Wt 103.0 kg
[2019-01-16] MEDS ORDERED: MORPHINE SULFATE 4 MG/ML CPJ (NOT FOR IM USE) IV STA (09:33)
[2019-01-16] MEDS ORDERED: IPRATROPIUM/ALBUTEROL 0.5-3(2.5)MG/3ML NEB HHN ONE (09:45)
[2019-01-16 10:12] LABS: BASOPHILS % 0.5 % (0.0-2.0); EOSINOPHILS % 0.4 % (0.0-5.0); HEMATOCRIT. 37.7 % (36.0-48.0); LYMPHOCYTES % 35.9 % (20.0-50.0); MEAN CORPUSCULAR HEMOGLOBIN 27.5 pg (28.0-32.0); MEAN CORPUSCULAR VOLUME 86.4 fL (81.0-99.0); MEAN PLATELET VOLUME 7.7 fl (7.4-10.4); MONOCYTES % 9.1 % (2.0-8.0); NEUTROPHILS % 54.1 % (40.0-76.0); PLATELET 264 x1000/uL (130-400); RED BLOOD CELL COUNT 4.36 mill/uL (4.2-5.4); RED CELL DISTRIBUTION WIDTH 20.2 % (11.6-14.6)
[2019-01-16 10:17] LABS: CHLORIDE 109 mEq/L (98-107)
[2019-01-16] MEDS ORDERED: DIAZEPAM 5 MG TABLET PO ONE (10:45)
[2019-01-16 11:05] VITALS: BP 160/92
== END 2019-01-16 11:15 | disposition home or self-care (01) ==
LOC: ER 09:01
DX: M75.101 Unspecified rotator cuff tear or rupture of right shoulder, not specified as traumatic (principal); G89.29 Other chronic pain; M25.511 Pain in right shoulder; J44.9 Chronic obstructive pulmonary disease, unspecified; I10 Essential (primary) hypertension; Z88.0 Allergy status to penicillin; Z88.1 Allergy status to other antibiotic agents; Z88.8 Allergy status to other drugs, medicaments and biological substances; Z88.6 Allergy status to analgesic agent; Z79.899 Other long term (current) drug therapy
CPT/HCPCS: 36415; 71045; 80053; 84484; 85025; 93005; 94640; 96374; 99284; J2270; J7620

== ENCOUNTER 2019-01-19 06:15 | Emergency (ER) | payer MEDICARE, OTHER ==
[~2019-01-19] VITALS: Ht 170.2 cm; Wt 58.0 kg
[2019-01-19] MEDS ORDERED: MORPHINE SULFATE 4 MG/ML CPJ (NOT FOR IM USE) IV ONE (07:00)
[2019-01-19] MEDS ORDERED: FLUORESCEIN SODIUM 1MG/STRIP BOTHEYE ONE (07:00)
[2019-01-19 08:25] VITALS: BP 125/80
== END 2019-01-19 08:25 | disposition home or self-care (01) ==
LOC: ER 06:15
DX: M25.511 Pain in right shoulder (principal); H53.8 Other visual disturbances; I10 Essential (primary) hypertension; M32.9 Systemic lupus erythematosus, unspecified; J44.9 Chronic obstructive pulmonary disease, unspecified; Z88.0 Allergy status to penicillin; Z88.6 Allergy status to analgesic agent; Z88.8 Allergy status to other drugs, medicaments and biological substances; Z87.19 Personal history of other diseases of the digestive system
CPT/HCPCS: 96374; 99283; J2270

== ENCOUNTER 2019-02-01 07:34 | Emergency (ER) | payer MEDICARE, MEDICAID ==
[~2019-02-01] VITALS: Ht 170.2 cm; Wt 57.0 kg
[2019-02-01] MEDS ORDERED: IPRATROPIUM BROMIDE (0.02%) 0.5MG/2.5ML NEB HHN STA (08:33)
[2019-02-01] MEDS ORDERED: ALBUTEROL (0.083%) 2.5MG/3ML NEB HHN STA (08:33)
[2019-02-01] MEDS ORDERED: HYDROCODONE/APAP 7.5/325MG 1 TAB TABLET PO ONE (08:45)
[2019-02-01] MEDS ORDERED: MORPHINE SULFATE 4 MG/ML CPJ (NOT FOR IM USE) IV STA (09:42)
[2019-02-01 09:59] VITALS: BP 192/98
== END 2019-02-01 11:28 | disposition left against medical advice (07) ==
LOC: ER 07:34
DX: M79.18 Myalgia, other site (principal); M32.9 Systemic lupus erythematosus, unspecified; R06.2 Wheezing; J44.9 Chronic obstructive pulmonary disease, unspecified; I10 Essential (primary) hypertension; Z79.899 Other long term (current) drug therapy; Z88.0 Allergy status to penicillin; Z88.6 Allergy status to analgesic agent; Z88.3 Allergy status to other anti-infective agents
CPT/HCPCS: 71045; 94640; 96374; 99283; J2270; J7611

== ENCOUNTER 2019-02-13 18:42 | Emergency (ER) | payer MEDICARE, MEDICAID ==
[~2019-02-13] VITALS: Ht 162.6 cm; Wt 54.0 kg
[2019-02-13] MEDS ORDERED: SODIUM CHLORIDE 0.9% 1,000 ML IV ONE (21:52)
[2019-02-13] MEDS ORDERED: MORPHINE SULFATE 4 MG/ML CPJ (NOT FOR IM USE) IV STA (21:52)
[2019-02-13] MEDS ORDERED: ONDANSETRON HCL 4MG/2ML INJ IV STA (21:52)
[2019-02-13 22:48] LABS: BASOPHILS % 0.7 % (0.0-2.0); EOSINOPHILS % 1.5 % (0.0-5.0); HEMATOCRIT. 37.1 % (36.0-48.0); HEMOGLOBIN. 11.8 g/dL (12.0-16.0); LYMPHOCYTES % 28.5 % (20.0-50.0); MEAN CORPUSCULAR HEMOGLOBIN 27.3 pg (28.0-32.0); MEAN CORPUSCULAR VOLUME 85.3 fL (81.0-99.0); MEAN PLATELET VOLUME 7.1 fl (7.4-10.4); MONOCYTES % 9.8 % (2.0-8.0); NEUTROPHILS % 59.5 % (40.0-76.0); PLATELET 316 x1000/uL (130-400); RED BLOOD CELL COUNT 4.34 mill/uL (4.2-5.4); RED CELL DISTRIBUTION WIDTH 19.3 % (11.6-14.6)
[2019-02-13 22:51] LABS: CHLORIDE 111 mEq/L (98-107)
[2019-02-13 22:55] LABS: INR 1.2; PROTHROMBIN TIME 12.2 sec (9.6-11.0)
[2019-02-14] MEDS ORDERED: KETOROLAC 15MG/ML VIAL IV ONE (00:15)
[2019-02-14] MEDS ORDERED: MORPHINE SULFATE 4 MG/ML CPJ (NOT FOR IM USE) IV ONE (02:45)
[2019-02-14 03:05] VITALS: BP 144/84
== END 2019-02-14 03:12 | disposition home or self-care (01) ==
LOC: ER 18:42
DX: R10.13 Epigastric pain (principal); I12.0 Hypertensive chronic kidney disease with stage 5 chronic kidney disease or end stage renal disease; N18.6 End stage renal disease; J44.9 Chronic obstructive pulmonary disease, unspecified; M32.9 Systemic lupus erythematosus, unspecified; Z99.2 Dependence on renal dialysis; Z88.6 Allergy status to analgesic agent; Z88.0 Allergy status to penicillin; Z90.710 Acquired absence of both cervix and uterus
CPT/HCPCS: 36415; 73030; 74176; 80053; 83690; 83880; 84484; 85025; 85610; 93005; 96374; 96375; 96376; 99284; J1885; J2270; J2405; J7030

== ENCOUNTER 2019-02-27 11:11 | Emergency (ER) | payer MEDICARE, MEDICAID ==
[~2019-02-27] VITALS: Ht 160 cm; Wt 54.0 kg
[2019-02-27] MEDS ORDERED: MORPHINE SULFATE 4 MG/ML CPJ (NOT FOR IM USE) IV STA (15:34)
[2019-02-27] MEDS ORDERED: ONDANSETRON HCL 4MG/2ML INJ IV STA (15:34)
[2019-02-27] MEDS ORDERED: SODIUM CHLORIDE 0.9% 1,000 ML IV ONE (15:34)
[2019-02-27 15:58] LABS: BASOPHILS % 0.1 % (0.0-2.0); EOSINOPHILS % 1.1 % (0.0-5.0); HEMATOCRIT. 38.6 % (36.0-48.0); HEMOGLOBIN. 12.4 g/dL (12.0-16.0); LYMPHOCYTES % 15.5 % (20.0-50.0); MEAN CORPUSCULAR HEMOGLOBIN 27.6 pg (28.0-32.0); MEAN CORPUSCULAR VOLUME 86.2 fL (81.0-99.0); MEAN PLATELET VOLUME 7.8 fl (7.4-10.4); MONOCYTES % 8.5 % (2.0-8.0); NEUTROPHILS % 74.8 % (40.0-76.0); PLATELET 227 x1000/uL (130-400); RED BLOOD CELL COUNT 4.47 mill/uL (4.2-5.4); RED CELL DISTRIBUTION WIDTH 19.3 % (11.6-14.6)
[2019-02-27 16:03] LABS: CHLORIDE 109 mEq/L (98-107)
[2019-02-27 16:10] LABS: CLARITY URINE CLEAR (CLEAR); COLOR URINE YELLOW (YELLOW); KETONES URINE NEGATIVE (NEGATIVE); LEUKOCYTE ESTERASE URINE NEGATIVE (NEGATIVE); NITRITE URINE NEGATIVE (NEGATIVE); OCCULT BLOOD URINE NEGATIVE (NEGATIVE); PROTEIN URINE NEGATIVE (NEGATIVE); SPECIFIC GRAVITY URINE 1.025 (1.005-1.030)
[2019-02-27 18:02] VITALS: BP 117/75
== END 2019-02-27 18:09 | disposition home or self-care (01) ==
LOC: ER 11:12
DX: M32.9 Systemic lupus erythematosus, unspecified (principal); R11.2 Nausea with vomiting, unspecified; R19.7 Diarrhea, unspecified; I10 Essential (primary) hypertension; Z88.0 Allergy status to penicillin; Z88.6 Allergy status to analgesic agent; Z88.1 Allergy status to other antibiotic agents; Z79.899 Other long term (current) drug therapy; Z90.49 Acquired absence of other specified parts of digestive tract
CPT/HCPCS: 36415; 80053; 81003; 83690; 85025; 87086; 96361; 96374; 96375; 99283; J2270; J2405; J7030; 96376

== ENCOUNTER 2019-03-08 08:49 | Emergency (ER) | payer MEDICARE, MEDICAID ==
[~2019-03-08] VITALS: Ht 162.6 cm; Wt 54.0 kg
[2019-03-08] MEDS ORDERED: ASPIRIN 81MG TABLET PO ONE (10:30)
[2019-03-08] MEDS ORDERED: PREDNISONE 20MG TABLET PO ONE (10:45)
[2019-03-08] MEDS ORDERED: MORPHINE SULFATE 4 MG/ML CPJ (NOT FOR IM USE) IV ONE ×2 (10:45→12:30)
[2019-03-08 10:54] LABS: BASOPHILS % 0.7 % (0.0-2.0); EOSINOPHILS % 0.5 % (0.0-5.0); HEMATOCRIT. 37.8 % (36.0-48.0); HEMOGLOBIN. 12.4 g/dL (12.0-16.0); LYMPHOCYTES % 20.4 % (20.0-50.0); MEAN CORPUSCULAR HEMOGLOBIN 27.5 pg (28.0-32.0); MEAN CORPUSCULAR VOLUME 84.1 fL (81.0-99.0); MEAN PLATELET VOLUME 6.8 fl (7.4-10.4); MONOCYTES % 10.2 % (2.0-8.0); NEUTROPHILS % 68.2 % (40.0-76.0); PLATELET 345 x1000/uL (130-400); RED BLOOD CELL COUNT 4.49 mill/uL (4.2-5.4); RED CELL DISTRIBUTION WIDTH 19.2 % (11.6-14.6)
[2019-03-08 10:58] LABS: CHLORIDE 110 mEq/L (98-107)
[2019-03-08 11:02] LABS: INR 1.1; PARTIAL THROMBOPLASTIN TIME 30.6 sec (23.4-31.0); PROTHROMBIN TIME 11.5 sec (9.6-11.0)
[2019-03-08] MEDS ORDERED: POTASSIUM CHLORIDE 20MEQ TABLET SR PO SCH (11:45)
[2019-03-08 13:31] VITALS: BP 152/76
== END 2019-03-08 13:39 | disposition home or self-care (01) ==
LOC: ER 08:49
DX: M32.9 Systemic lupus erythematosus, unspecified (principal); E87.6 Hypokalemia; J43.9 Emphysema, unspecified; I10 Essential (primary) hypertension; Z88.0 Allergy status to penicillin; Z88.3 Allergy status to other anti-infective agents; Z88.6 Allergy status to analgesic agent; Z88.1 Allergy status to other antibiotic agents; Z79.899 Other long term (current) drug therapy; Z90.49 Acquired absence of other specified parts of digestive tract
CPT/HCPCS: 36415; 71045; 80053; 83880; 84484; 85025; 85610; 85730; 93005; 96374; 96376; 99284; J2270; J7512

== ENCOUNTER 2019-03-16 11:46 | Emergency (ER) | payer MEDICARE, MEDICAID ==
[~2019-03-16 11:46] MED LIST changes: +CARI-166 MT; -S350 MT
== END 2019-03-16 12:30 | disposition left against medical advice (07) ==
LOC: ER 11:46
DX: M79.10 Myalgia, unspecified site (principal); R53.1 Weakness; Z53.21 Procedure and treatment not carried out due to patient leaving prior to being seen by health care provider

== ENCOUNTER 2019-04-22 06:40 | Emergency (ER) | payer MEDICARE, MEDICAID ==
[~2019-04-22] VITALS: Ht 170.2 cm; Wt 55.0 kg
[2019-04-22] MEDS ORDERED: MORPHINE SULFATE 4 MG/ML CPJ (NOT FOR IM USE) IV ONE (07:15)
[2019-04-22 09:15] VITALS: BP 146/86
== END 2019-04-22 09:16 | disposition home or self-care (01) ==
LOC: ER 06:40
DX: M79.18 Myalgia, other site (principal); J44.9 Chronic obstructive pulmonary disease, unspecified; Z87.891 Personal history of nicotine dependence; Z90.49 Acquired absence of other specified parts of digestive tract; Z98.890 Other specified postprocedural states; Z79.899 Other long term (current) drug therapy; Z88.0 Allergy status to penicillin; Z88.3 Allergy status to other anti-infective agents; Z88.6 Allergy status to analgesic agent; Z88.1 Allergy status to other antibiotic agents
CPT/HCPCS: 96374; 99283; J2270

== ENCOUNTER 2019-05-22 12:49 | Emergency (ER) | payer MEDICARE, MEDICAID ==
[~2019-05-22] VITALS: Ht 170.2 cm; Wt 55.0 kg
[2019-05-22] MEDS ORDERED: SODIUM CHLORIDE 0.9% 1,000 ML IV ONE (13:31)
[2019-05-22] MEDS ORDERED: ONDANSETRON HCL 4MG/2ML INJ IV STA (13:31)
[2019-05-22] MEDS ORDERED: MORPHINE SULFATE 4 MG/ML CPJ (NOT FOR IM USE) IV STA (13:31)
[2019-05-22 14:37] LABS: BASOPHILS % 1.2 % (0.0-2.0); EOSINOPHILS % 0.9 % (0.0-5.0); HEMATOCRIT. 36.7 % (36.0-48.0); HEMOGLOBIN. 11.8 g/dL (12.0-16.0); LYMPHOCYTES % 31.2 % (20.0-50.0); MEAN CORPUSCULAR HEMOGLOBIN 27.1 pg (28.0-32.0); MEAN CORPUSCULAR VOLUME 84.3 fL (81.0-99.0); MEAN PLATELET VOLUME 7.4 fl (7.4-10.4); MONOCYTES % 13.5 % (2.0-8.0); NEUTROPHILS % 53.2 % (40.0-76.0); PLATELET 273 x1000/uL (130-400); RED BLOOD CELL COUNT 4.36 mill/uL (4.2-5.4); RED CELL DISTRIBUTION WIDTH 18.9 % (11.6-14.6)
[2019-05-22 14:38] LABS: CHLORIDE 108 mEq/L (98-107); INR 1.1; PROTHROMBIN TIME 11.6 sec (9.6-11.0)
[2019-05-22] MEDS ORDERED: HYDROCODONE/ACETAMINOPHEN 5/325MG TABLET PO ONE (16:45)
[2019-05-22 17:09] VITALS: BP 124/78
== END 2019-05-22 17:11 | disposition home or self-care (01) ==
LOC: ER 12:50
DX: R10.9 Unspecified abdominal pain (principal); J44.9 Chronic obstructive pulmonary disease, unspecified; Z90.49 Acquired absence of other specified parts of digestive tract; Z79.899 Other long term (current) drug therapy; Z88.0 Allergy status to penicillin; Z88.1 Allergy status to other antibiotic agents; Z88.6 Allergy status to analgesic agent; Z88.8 Allergy status to other drugs, medicaments and biological substances
CPT/HCPCS: 36415; 74176; 80053; 83690; 84484; 85025; 85610; 93005; 96374; 96375; 99284; J2270; J2405; J7030

== ENCOUNTER 2020-01-05 09:31 | Emergency (ER) | payer MEDICARE, MEDICAID ==
[~2020-01-05] VITALS: Ht 170.2 cm; Wt 54.0 kg
[~2020-01-05 09:31] MED LIST changes: -CARI-166 MT; +CARI350T28 MT
[2020-01-05] MEDS ORDERED: MORPHINE SULFATE 10 MG/ML CPJ IM ONE (10:00)
[2020-01-05] MEDS ORDERED: ONDANSETRON 4MG ODT PO ONE (10:00)
[2020-01-05 10:04] VITALS: BP 129/95
== END 2020-01-05 10:40 | disposition home or self-care (01) ==
LOC: ER 09:31
DX: M79.10 Myalgia, unspecified site (principal); M32.9 Systemic lupus erythematosus, unspecified; J44.9 Chronic obstructive pulmonary disease, unspecified; Z86.73 Personal history of transient ischemic attack (TIA), and cerebral infarction without residual deficits; Z87.19 Personal history of other diseases of the digestive system; Z88.6 Allergy status to analgesic agent; Z88.1 Allergy status to other antibiotic agents; Z88.0 Allergy status to penicillin; Z88.8 Allergy status to other drugs, medicaments and biological substances
CPT/HCPCS: 96372; 99283; J2270; Q0162

== ENCOUNTER 2020-01-07 11:22 | Emergency (ER) | payer MEDICARE, MEDICAID ==
[~2020-01-07] VITALS: Ht 170.2 cm; Wt 55.0 kg
[2020-01-07] MEDS ORDERED: HYDROCODONE/ACETAMINOPHEN 5/325MG TABLET PO STA (12:10)
[2020-01-07 12:55] VITALS: BP 134/78
[2020-01-07] MEDS ORDERED: MORPHINE SULFATE 10 MG/ML CPJ IM ONE (13:15)
== END 2020-01-07 13:23 | disposition left against medical advice (07) ==
LOC: ER 11:22
DX: M25.511 Pain in right shoulder (principal); M32.9 Systemic lupus erythematosus, unspecified; J44.9 Chronic obstructive pulmonary disease, unspecified; I25.2 Old myocardial infarction; M54.30 Sciatica, unspecified side; I11.9 Hypertensive heart disease without heart failure; F17.210 Nicotine dependence, cigarettes, uncomplicated; Z86.73 Personal history of transient ischemic attack (TIA), and cerebral infarction without residual deficits; Z90.49 Acquired absence of other specified parts of digestive tract; Z88.6 Allergy status to analgesic agent; Z98.1 Arthrodesis status; Z88.0 Allergy status to penicillin
CPT/HCPCS: 93005; 99283

== ENCOUNTER 2020-01-09 09:18 | Emergency (ER) | payer MEDICARE, MEDICAID ==
[~2020-01-09] VITALS: Ht 170.2 cm; Wt 54.0 kg
[2020-01-09] MEDS ORDERED: METOCLOPRAMIDE HCL 10MG TABLET PO ONE (11:15)
[2020-01-09] MEDS ORDERED: ACETAMINOPHEN 325MG TABLET PO ONE ×2 (11:15→12:30)
[2020-01-09 11:30] VITALS: BP 144/87
[2020-01-09] MEDS ORDERED: ONDANSETRON HCL 4MG/2ML INJ IV STA (12:24)
[2020-01-09] MEDS ORDERED: SODIUM CHLORIDE 0.9% 1,000 ML IV ONE (12:24)
== END 2020-01-09 12:50 | disposition left against medical advice (07) ==
LOC: ER 09:18
DX: M25.511 Pain in right shoulder (principal); R51 Headache; R10.0 Acute abdomen; R55 Syncope and collapse; H53.8 Other visual disturbances; Z86.73 Personal history of transient ischemic attack (TIA), and cerebral infarction without residual deficits
CPT/HCPCS: 73030; 99283; J7030; J8597